=== PATIENT | female | born 1980 | race Caucasian/White ===

== ENCOUNTER 2017-08-29 15:31 | Emergency (ER) | payer OTHER ==
[~2017-08-29] VITALS: Ht 165.1 cm; Wt 99.8 kg
[2017-08-29] MEDS ORDERED: MORPHINE SULFATE 4 MG/ML SYR IV STA (15:43)
[2017-08-29] MEDS ORDERED: SODIUM CHLORIDE 0.9% 1000ML 1,000 ML IV STA (15:43)
[2017-08-29] MEDS ORDERED: ONDANSETRON HCL INJ 2 MG/ML VIAL IV STA (15:43)
[2017-08-29] MEDS ORDERED: DONNATAL/LIDOCAINE/MAALOX 30 ML SUSP PO SCH (15:45)
[2017-08-29 17:10] LABS: CLARITY,URINE SL CLOUDY (CLEAR); COLOR,URINE YELLOW (YELLOW); KETONES,URINE NEGATIVE (NEGATIVE); LEUKOCYTE ESTERASE ,URINE NEGATIVE (NEGATIVE); NITRITE,URINE NEGATIVE (NEGATIVE); PROTEIN,URINE DIPSTICK NEGATIVE (NEGATIVE)
[2017-08-29 17:11] LABS: BILIRUBIN,URINE NEGATIVE (NEGATIVE); PREGNANCY TEST, URINE NEGATIVE (NEGATIVE); URINE UROBILINOGEN 0.2 mg/dL (0.2 - 1)
[2017-08-29 17:27] LABS: BACTERIA,URINE MANY /HPF
[2017-08-29 17:28] LABS: EPITHELIAL CELLS,URINE MANY /LPF; MUCUS,URINE MODERATE (RARE)
--- NOTE | 2017-08-29 17:50 | Diagnostic Imaging Report ---
EXAM: Right Upper Quadrant Ultrasound INDICATION: Abdominal pain. COMPARISON: None. TECHNIQUE: Transverse and longitudinal images of the right upper abdomen were obtained. FINDINGS: Liver: Size: 13.8 cm in the right midclavicular line, normal Appearance: Normal echogenicity, smooth contour Mass: No focal masses Gallbladder: Stones/Sludge: None Wall: 0.2 cm Appearance: No wall thickening, pericholecystic fluid or hydrops. Sonographic Gamez's Sign: Positive per technologist notes Bile Ducts: Intrahepatic Ducts: No dilatation Extrahepatic Ducts: Common bile duct measures 0.6 cm, no dilatation Pancreas: Incompletely visualized due to overlying bowel gas, but no abnormality identified involving the visualized portions of the pancreas. Kidneys: Length: Right 11.2 cm Echogenicity: Normal Collecting System: No hydronephrosis Stone: None Cyst/Mass: None Vessels: Aorta: Visualized portions are normal Inferior Vena Cava: Visualized portions are normal Main Portal Vein: 1.0 cm, normal size with hepatopetal flow. Free Fluid: No ascites or pleural effusion IMPRESSION: Cholelithiasis without sonographic evidence of acute cholecystitis Signed by: Dr. Colby Camacho M.D. on 08/29/2017 5:47 PM
[2017-08-29 18:12] LABS: BASOPHILS % 0.2 % (0.0-1.0); EOSINOPHILS % 0.1 % (0.0-6.0); HEMOGLOBIN 13.6 g/dL (12.0-16.0); LYMPHOCYTES # (AUTO) 1.5 (1.0-3.2); LYMPHOCYTES % 10.7 % (18.0-39.1); MEAN CORPUSCULAR HEMOGLOBIN 31.7 pg (28-32); MEAN CORPUSCULAR VOLUME 93.2 fL (81-99); MONOCYTES # (AUTO) 0.6 (0.2-0.8); MONOCYTES % 4.2 % (4.4-11.3); NEUTROPHILS # (AUTO) 11.8 (2.1-6.9); NEUTROPHILS % 84.2 % (38.7-80.0); PLATELET COUNT 242 x10e3/uL (140-360); RED BLOOD COUNT 4.29 x10e6/uL (3.6-5.1); RED CELL DISTRIBUTION WIDTH 13.5 % (11.7-14.4)
[2017-08-29] MEDS ORDERED: MORPHINE SULFATE 2 MG/ML SYR ONE (18:25)
[2017-08-29 18:29] LABS: ALANINE AMINOTRANSFERASE 86 IU/L (0-55); ALBUMIN 3.7 g/dL (3.5-5.0); ALBUMIN/GLOBULIN RATIO 0.9 (0.8-2.0); ALKALINE PHOSPHATASE 124 IU/L (40-150); AMYLASE 69 U/L (25-125); ANION GAP 13.2 mmol/L (8-16); BLOOD UREA NITROGEN 14 mg/dL (7-26); BUN/CREATININE RATIO 17 (6-25); CALCIUM 9.6 mg/dL (8.4-10.2); CARBON DIOXIDE 25 mmol/L (22-29); CHLORIDE 104 mmol/L (98-107); CREATINE KINASE 110 IU/L (29-168); CREATININE, SERUM 0.81 mg/dL (0.57-1.11); EST GLOMERULAR FILTRATION RATE > 60 ML/MIN (60-); GLUCOSE 123 mg/dL (74-118); LIPASE 26 U/L (8-78); POTASSIUM 4.2 mmol/L (3.5-5.1); SODIUM 138 mmol/L (136-145)
[2017-08-29] MEDS ORDERED: BELLADONNA ALK/PHENOBARBITAL 5 ML UDC PO NR (18:44)
[2017-08-29] MEDS ORDERED: MAGNESIUM/ALUMINUM/SIMETHICONE 30 ML UDC PO ONE (18:45)
[2017-08-29] MEDS ORDERED: LIDOCAINE VISC 2% SOLN 15 ML UDC PO ONE (18:45)
[2017-08-29] MEDS ORDERED: LIDOCAINE VISC 2% SOLN 15 ML UDC ONE (18:47)
== END 2017-08-29 19:42 | disposition home or self-care (01) ==
LOC: ER 15:31
DX: K80.20 Calculus of gallbladder without cholecystitis without obstruction (principal); Z88.2 Allergy status to sulfonamides
CPT/HCPCS: 36415; 76705; 80053; 81001; 81025; 82150; 82550; 82553; 83690; 84484; 85025; 87086; 93005; 99284; J2270; J2405; J7030

== ENCOUNTER 2017-08-30 17:38 | Observation (INO) | payer OTHER ==
[~2017-08-30] VITALS: Ht 165.1 cm; Wt 99.8 kg
[2017-08-30 20:00] VITALS: BP 171/94
[2017-08-30] MEDS: LACTATED RINGER'S 1,000 ML IV SCH (21:00)
[2017-08-30] MEDS: HYDROMORPHONE 1MG/1ML INJ IV PRN (22:13)
[2017-08-30] MEDS: ONDANSETRON HCL INJ 2 MG/ML VIAL IV PRN (22:14)
[2017-08-30] MEDS ORDERED: DONNATAL/LIDOCAINE/MAALOX 30 ML SUSP PO ONE ×2 (22:30→23:00)
[2017-08-30 22:47] VITALS: BP 171/94
[2017-08-31] VITALS (7 sets, daily range): BP systolic 104–171; BP diastolic 59–94
[2017-08-31] MEDS: LACTATED RINGER'S 1,000 ML IV SCH (06:12)
[2017-08-31] MEDS ORDERED: PANTOPRAZOLE 40 MG 10ML VIAL IV SCH (09:00)
[2017-08-31] MEDS: PANTOPRAZOLE 40 MG 10ML VIAL IV SCH ×2 (09:16→17:15)
--- NOTE | 2017-08-31 09:16 | Diagnostic Imaging Report ---
HIDA Scan Clinical information: 37 F with severe abdominal pain Report: Following the administration of 6 of Tc-99m mebrofenin, dynamic images of the abdomen in the anterior projection were obtained through 60 minutes. Additional static image was obtained at approximately 12 hours post injection of tracer. Perfusion to the liver is normal. Extraction of tracer by the liver parenchyma is normal. Tracer appears promptly within the biliary tract. No tracer appears in the biliary tract, gallbladder or small bowel through 60 minutes of imaging. On the delayed image at approximately 12 hours, tracer is seen in the gallbladder, which has filled adequately. No tracer is seen in the small bowel but there are no dilated biliary radicals. Impression: 1. Cholestasis is present although over the period of 12 hours the gallbladder filled. Filling of the gallbladder excludes acute cholecystitis. Common bile duct obstruction is not suspected although tracer is not seen in the small bowel through 12 hours. This may be an effect of pain medication given after the initial 60 minutes of imaging. If CBD obstruction is suspected, recommend repeat ultrasound. Signed by: Dr. Genesis Hernández M.D. on 08/31/2017 9:13 AM
[2017-08-31] MEDS: ONDANSETRON HCL INJ 2 MG/ML VIAL IV PRN (10:12)
[2017-08-31] MEDS: HYDROMORPHONE 1MG/1ML INJ IV PRN ×2 (10:12→22:59)
[2017-08-31] MEDS: DEXTROSE 5%/LACTATED RINGERS 1,000 ML IV SCH ×2 (11:15→22:59)
[2017-08-31 11:23] LABS: BILIRUBIN,URINE 2+ (NEGATIVE); CLARITY,URINE SL CLOUDY (CLEAR); COLOR,URINE YELLOW (YELLOW); LEUKOCYTE ESTERASE ,URINE NEGATIVE (NEGATIVE); NITRITE,URINE NEGATIVE (NEGATIVE); PROTEIN,URINE DIPSTICK NEGATIVE (NEGATIVE); URINE UROBILINOGEN 0.2 mg/dL (0.2 - 1)
[2017-08-31 11:24] LABS: KETONES,URINE NEGATIVE (NEGATIVE)
[2017-08-31 11:42] LABS: EPITHELIAL CELLS,URINE FEW /LPF
--- NOTE | 2017-08-31 17:25 | Operative Report ---
DATE OF PROCEDURE: August 31, 2017 REFERRING PHYSICIAN: Dr. Lorena Anderson. PROCEDURE PERFORMED: Esophagogastroduodenoscopy with biopsies. INDICATIONS FOR ESOPHAGOGASTRODUODENOSCOPY: Upper abdominal pain. MEDICATION: Patient was done under MAC. Please see anesthesiologist's note. PROCEDURE: With patient in the left lateral decubitus position, flexible fiberoptic Olympus gastroscope was introduced into the esophagus under direct visualization without any difficulty. There was some patchy erythema noted in distal esophagus. Minute tongues of velvety red mucosa were noted to extend proximally from the GE junction. Biopsies were obtained to rule out Rivers's. The scope was then advanced with ease into the stomach traversing a small sliding hiatal hernia. Mucosa overlying the antrum and the body revealed some patchy areas of erythema, low-grade edema and biopsies were obtained and sent to stain for H. pylori. The pylorus was of normal contour and shape. Was intubated with ease and the scope was advanced all the way to the 2nd portion of the duodenum. The scope was then withdrawn slowly. Mucosa overlying the proximal 2nd portion and the duodenal bulb appeared to be within normal limits. The scope was then withdrawn back into the stomach and retroflexed and the mucosa overlying the fundus and the cardia appeared to be within normal limits. The scope was then straightened out and was subsequently withdrawn. Patient tolerated procedure well. IMPRESSION: 1. Distal esophagitis. 2. Rule out Rivers's esophagus. 3. Small sliding hiatal hernia. 4. Gastritis, biopsied. Biopsy sent to stain for H. pylori. PLAN: Follow up histology. Continue current therapy. Findings do not explain patient's symptoms. Will need a cholecystectomy. Job#: [id number] cc:LORENA ANDERSON MD cc: CLIFFORD ARNOLD MD
[2017-08-31 17:55] LABS: BASOPHILS % 0.4 % (0.0-1.0); EOSINOPHILS # (AUTO) 0.1 (0.0-0.4); EOSINOPHILS % 1.7 % (0.0-6.0); HEMATOCRIT 36.9 % (34.2-44.1); HEMOGLOBIN 12.2 g/dL (12.0-16.0); LYMPHOCYTES # (AUTO) 2.2 (1.0-3.2); LYMPHOCYTES % 28.8 % (18.0-39.1); MEAN CORPUSCULAR HEMOGLOBIN 31.4 pg (28-32); MEAN CORPUSCULAR HGB CONC 33.1 g/dL (31-35); MEAN CORPUSCULAR VOLUME 95.1 fL (81-99); MONOCYTES # (AUTO) 0.5 (0.2-0.8); MONOCYTES % 6.7 % (4.4-11.3); NEUTROPHILS # (AUTO) 4.8 (2.1-6.9); NEUTROPHILS % 62.1 % (38.7-80.0); PLATELET COUNT 200 x10e3/uL (140-360); RED BLOOD COUNT 3.88 x10e6/uL (3.6-5.1); RED CELL DISTRIBUTION WIDTH 13.7 % (11.7-14.4)
[2017-08-31 18:11] LABS: ANION GAP 12.2 mmol/L (8-16); BLOOD UREA NITROGEN 7 mg/dL (7-26); BUN/CREATININE RATIO 8 (6-25); CALCIUM 9.1 mg/dL (8.4-10.2); CARBON DIOXIDE 27 mmol/L (22-29); CHLORIDE 101 mmol/L (98-107); CREATININE, SERUM 0.84 mg/dL (0.57-1.11); EST GLOMERULAR FILTRATION RATE > 60 ML/MIN (60-); GLUCOSE 115 mg/dL (74-118); POTASSIUM 4.2 mmol/L (3.5-5.1); SODIUM 136 mmol/L (136-145)
[2017-08-31] MEDS ORDERED: KETAMINE HCL INJ 50 MG/ML 10 ML VIAL ONE (19:34)
[2017-08-31] MEDS ORDERED: MIDAZOLAM HCL 2 MG/2 ML VIAL ONE (19:34)
[2017-08-31] MEDS ORDERED: FENTANYL CITRATE/PF 100MCG/2 ML INJ ONE (19:34)
[2017-08-31] MEDS ORDERED: PROPOFOL IV EMULSION 10 MG/ML 50 ML VIAL ONE (19:55)
[2017-09-01] VITALS (9 sets, daily range): BP systolic 103–153; BP diastolic 53–83
[2017-09-01] MEDS: DEXTROSE 5%/LACTATED RINGERS 1,000 ML IV SCH ×3 (02:50→16:31)
[2017-09-01] MEDS: PANTOPRAZOLE 40 MG 10ML VIAL IV SCH ×2 (08:34→16:31)
[2017-09-01] MEDS: HYDROMORPHONE 1MG/1ML INJ IV PRN ×3 (10:22→20:56)
[2017-09-01] MEDS ORDERED: DEXAMETHASONE SOD PHOS INJ 4 MG/ML VIAL ONE (12:05)
[2017-09-01] MEDS ORDERED: LIDOCAINE HCL 2% LOCAL INJ 5 ML SDV VIAL INJ ONE (12:05)
[2017-09-01] MEDS ORDERED: ROCURONIUM BROMIDE 10 MG/ML 5ML VIAL ONE (12:05)
[2017-09-01] MEDS ORDERED: SEVOFLURANE INHAL SOLN 250 ML PEN BTL ONE (12:05)
[2017-09-01] MEDS ORDERED: PROPOFOL IV EMULSION 10 MG/ML 20 ML VIAL ONE (12:05)
[2017-09-01] MEDS ORDERED: ONDANSETRON HCL INJ 2 MG/ML VIAL ONE (12:05)
[2017-09-01] MEDS ORDERED: BUPIVACAINE 0.5%/EPI 30 ML SDV INJ ONE (12:53)
[2017-09-01] MEDS ORDERED: ACETAMINOPHEN 1000 MG/100 ML IV PRN (14:00)
[2017-09-01] MEDS ORDERED: HYDROCODONE/APAP 7.5MG-325MG 1 EA TAB PO PRN (14:00)
[2017-09-01] MEDS ORDERED: HYDROMORPHONE 1MG/1ML INJ ONE (14:21)
[2017-09-01] MEDS ORDERED: MIDAZOLAM HCL 2 MG/2 ML VIAL ONE (18:00)
[2017-09-01] MEDS ORDERED: FENTANYL CITRATE/PF 100MCG/2 ML INJ ONE (18:00)
[2017-09-02 00:47] VITALS: BP 147/61
[2017-09-02] MEDS: HYDROMORPHONE 1MG/1ML INJ IV PRN ×2 (01:32→09:14)
[2017-09-02] MEDS: ONDANSETRON HCL INJ 2 MG/ML VIAL IV PRN (01:32)
[2017-09-02] MEDS: DEXTROSE 5%/LACTATED RINGERS 1,000 ML IV SCH ×2 (03:43→09:34)
[2017-09-02 04:00] VITALS: BP 93/58
[2017-09-02 06:43] LABS: BASOPHILS % 0.2 % (0.0-1.0); EOSINOPHILS # (AUTO) 0.1 (0.0-0.4); EOSINOPHILS % 0.9 % (0.0-6.0); HEMATOCRIT 32.7 % (34.2-44.1); HEMOGLOBIN 11.3 g/dL (12.0-16.0); LYMPHOCYTES # (AUTO) 1.6 (1.0-3.2); LYMPHOCYTES % 15.2 % (18.0-39.1); MEAN CORPUSCULAR HEMOGLOBIN 32.2 pg (28-32); MEAN CORPUSCULAR HGB CONC 34.6 g/dL (31-35); MEAN CORPUSCULAR VOLUME 93.2 fL (81-99); MONOCYTES # (AUTO) 0.7 (0.2-0.8); MONOCYTES % 6.7 % (4.4-11.3); NEUTROPHILS # (AUTO) 7.8 (2.1-6.9); NEUTROPHILS % 76.6 % (38.7-80.0); PLATELET COUNT 229 x10e3/uL (140-360); RED BLOOD COUNT 3.51 x10e6/uL (3.6-5.1); RED CELL DISTRIBUTION WIDTH 13.7 % (11.7-14.4)
[2017-09-02 06:48] LABS: ANION GAP 10.4 mmol/L (8-16); BLOOD UREA NITROGEN 5 mg/dL (7-26); BUN/CREATININE RATIO 6 (6-25); CALCIUM 8.6 mg/dL (8.4-10.2); CARBON DIOXIDE 27 mmol/L (22-29); CHLORIDE 102 mmol/L (98-107); CREATININE, SERUM 0.78 mg/dL (0.57-1.11); EST GLOMERULAR FILTRATION RATE > 60 ML/MIN (60-); GLUCOSE 124 mg/dL (74-118); POTASSIUM 3.4 mmol/L (3.5-5.1); SODIUM 136 mmol/L (136-145)
[2017-09-02 07:51] VITALS: BP 122/69
[2017-09-02] MEDS: PANTOPRAZOLE 40 MG 10ML VIAL IV SCH (09:14)
[2017-09-02] MEDS ORDERED: KEFLEX500 MG PO (10:25)
[2017-09-02] MEDS ORDERED: TYLENOL WITH C1 EACH PO (10:25)
--- NOTE | 2017-09-21 04:48 | Operative Report ---
DATE OF PROCEDURE: September 01, 2017 PREOPERATIVE DIAGNOSIS: Acute cholecystitis and cholelithiasis. POSTOPERATIVE DIAGNOSIS: Acute cholecystitis and cholelithiasis. OPERATION PERFORMED: Laparoscopic cholecystectomy. EDGER MACHINE HELPER: Dr. Roberto Miles and Annalisa WHITE. ANESTHESIA: General. COMPLICATIONS: None. ESTIMATED BLOOD LOSS: Minimal. DESCRIPTION OF PROCEDURE: With the patient lying in bed in the supine position under good general endotracheal anesthesia, the abdomen was prepped with Betadine solution and draped in the usual manner. A Veress needle was introduced into the umbilicus, and pneumoperitoneum was established without any difficulty. An 11 mm trocar was placed into the umbilicus, and a 10 mm video laparoscope was placed into the intra-abdominal cavity. Under direct vision, three 5 mm trocars were placed in the right subcostal region. Video laparoscopy at this point revealed a tightly distended gallbladder with some edema consistent with acute cholecystitis. There were multiple stones, and there was a large stone impacted at the neck of the gallbladder. There were also multiple adhesions to the right lobe of the liver from the patient's previous hysterectomy. Her uterus was totally stuck to the anterior abdominal wall. There was a small physiologic cyst in the right ovary. The rest of the abdominal exploration was otherwise within normal limits. The adhesions to the right lobe of the liver were then slowly and carefully taken down. The peritoneum overlying the neck of the gallbladder was then opened, and the cystic duct was identified. The cystic duct was followed to its junction with the common duct. Cystic duct was then circumferentially dissected away from the common duct, doubly clipped and divided. The cystic artery was similarly doubly clipped and divided. The gallbladder was then slowly and carefully taken off of the liver bed using the cautery scissors, and perfect hemostasis was ascertained. The gallbladder was placed in a pouch and removed through the umbilicus without any difficulty. Video laparoscopy was then again carried out. The liver bed was found to be perfectly dry. All of the excess fluid was aspirated. The pneumoperitoneum was evacuated, and all the trocars were removed under direct vision. The midline fascia at the umbilicus was then closed with a [id number] of 0 Vicryl. All layers were infiltrated on the way out with solution of 1/4 percent Marcaine. Subcutaneous tissue was approximated with 3-0 Vicryl, and the skin was closed with subcuticular 5-0 Vicryl. Benzoin, Steri-Strips and Band-Aids were applied. The sponge, lap and needle count was correct. The patient tolerated the procedure well and returned to the recovery room in stable condition. Job#: [id number]
--- NOTE | 2017-10-14 17:28 | Discharge Summary ---
CHIEF COMPLAINT: Active cholecystitis. FINAL DIAGNOSES: 1. Cholecystitis. 2. Cholelithiasis. 3. Upper abdominal pain. 4. Status post laparoscopic cholecystectomy. PROCEDURES: 1. EGD. 2. Laparoscopic cholecystectomy. DISPOSITION: Home. A 37-year-old female complains of epigastric pain radiating to the back which has been ongoing now for several months. Pain now has progressively worsened, has been associated with nausea and vomiting. No hematemesis. No dysphagia. Patient direct admit to the facility from Dr. Azar Miguel's office. His assessment was persistent right upper quadrant tenderness, positive nausea and vomiting. With admission patient was reviewed by Dr. Miles; and with his review of data and evaluating the patient his assessment was cholecystitis/cholelithiasis. Plan is for laparoscopic cholecystectomy. Patient was NPO. Waiting for the surgery, on the med surg floor and receiving IV fluids and given hydromorphone for pain management and given also medications for nausea. PPI management as well. Laboratory studies were stable. She underwent the laparoscopic procedure uneventfully routinely. Post procedure she was doing well. Diet was being slowly advanced as tolerated. Lab studies remained stable. She was cleared for discharge and she was released home on 09/02/2017 in stable condition. She initially underwent the EGD upon admission regarding her progressive upper abdominal pain and this was conducted by Dr. Azar Miguel. Findings were showing distal esophagitis. Rule out Rivers's esophagus. Small sliding hiatal hernia and gastritis. It was noted by Dr. Azar Miguel that the findings of this EGD did not explain the patient's symptoms. Patient will need a cholecystectomy. The patient was reviewed by Dr. Miles, general surgery. The patient was scheduled for a laparoscopic procedure, possible open and on 09/01 she was taken to the surgery suite where she was able to have a laparoscopic cholecystectomy due to cholecystitis/cholelithiasis. Postop she did well and she was tolerating her diet appropriately. Her labs remained stable. She was cleared for discharge and she was able to be released home on 09/02/2017 in stable condition. With discharge home, she will continue on a progressive diet. No equipment or supplies necessary, drain or Hanna needed. Activity level as directed by me as well as by Dr. Miles. She was given prescription for Tylenol No. 3, one tablet as needed for pain every 4 to 6 hours. She will also be on Keflex 500 mg 1 tablet 3 times a day for 7 days. She was instructed to watch for temperature greater than 101.5, abdominal distention or any change in bowel habits, redness, painful to touch surgical sites, redness at the surgical sites, foul smelling drainage from the surgical sites. If any of these issues were to occur she will be contacting Dr. Miles immediately. She will be reporting back to his office within 2 to 3 weeks and it was noted that she has no documented family PCP on her demographic sheet. She may follow up with me in 2 weeks if she chooses or she may report to a PCP of her choice. Dictated By: MIGUELINA Morgan Job#: [id number]
== END 2017-09-02 11:10 | disposition home or self-care (01) ==
LOC: MED/SURG3 17:38 → INTOOBSV 17:38 → MED/SURG 08-31 22:37 → MED/SURG3 08-31 22:44 → MED/SURG 08-31 23:45
DX: K80.12 Calculus of gallbladder with acute and chronic cholecystitis without obstruction (principal); K21.0 Gastro-esophageal reflux disease with esophagitis; K44.9 Diaphragmatic hernia without obstruction or gangrene; K29.50 Unspecified chronic gastritis without bleeding; E66.9 Obesity, unspecified; Z68.36 Body mass index [BMI] 36.0-36.9, adult
CPT/HCPCS: 36415 ×2; 43239; 47562; 78227; 80048 ×2; 81001; 85025 ×2; 88304; 88305; 88312; 96360; 96361; A9537; C1766; G0378 ×4; J1100; J1170 ×4; J2001; J2250 ×2; J2405 ×4; J7120 ×5